=== PATIENT | female | born 1950 ===

== ENCOUNTER 2018-02-19 10:05 | Day surgery (SDC) | payer BC ==
[2018-02-15 12:34] VITALS: BMI 36.0
[2018-02-19] MEDS ORDERED: Midazolam 2 MG/2 ML VIAL ONE (13:08)
[2018-02-19] MEDS ORDERED: Propofol 10 mg/ml Inj (20 ML) ONE (13:08)
[2018-02-19] MEDS ORDERED: Lidocaine 2% MPF (5 ml) Inj ONE (13:22)
[2018-02-19] MEDS ORDERED: Bupivacaine 0.25% 20 ML INJ IJ ONE ×2 (13:22→14:00)
[2018-02-19] MEDS ORDERED: ceFAZolin IV 1 gm in Dextrose 2 GM/100 ML BAG IVPB ONE (13:22)
[2018-02-19] MEDS ORDERED: Oxycodone/Acetaminophen 5/325 mg Tab PO PRN (14:13)
[2018-02-19] MEDS ORDERED: HYDROmorphone 0.5 mg/0.5 ml ISec IVP PRN (14:20)
[2018-02-19] MEDS ORDERED: HYDROmorphone 0.5 mg/0.5 ml ISec ONE (14:24)
[2018-02-19 15:58] VITALS: RESP 18; TEMP 97.7; O2SAT 96
[2018-02-19 17:06] VITALS: BP 126/52; PULSE 65
--- NOTE | 2018-02-21 09:22 | OP ---
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 PROCEDURE PERFORMED: Wide deep excision (radical resection) of a 5 cm x 10 cm arteriovenous malformation/ vascular tumor of the left thigh. SURGEON: Jesu Cabello MD ANESTHESIA: General. ESTIMATED BLOOD LOSS: 50 mL. POSTOPERATIVE CONDITION: Stable. INDICATION FOR SURGERY: This is a 67-year-old female presented with a painful mass over the left thigh, measuring 5 x 10 cm consistent with a vascular tumor and AV malformation. She now presents which benefits definitive removal. GROSS FINDINGS: This is a 5 x 10 cm mass with several feeder veins and arteries consistent with a large hemangioma/vascular tumor/AV malformation. It was removed en bloc. DESCRIPTION OF PROCEDURE: The patient was taken to the operating room. General anesthesia was administered, and the left lower extremity was prepped and draped. A generalized elliptical incision was made surrounding the thigh mass, the mid portion of the thigh, slightly medium. It was carried down through the skin into subcutaneous tissue. A large feeding blood vessels were well controlled between clamps with Vicryl ties and also using medium hemoclips. There were several feeder veins and vessels ligated in order to completely remove the specimen as hemostatically as possible. A larger blood vessel deep was repaired with Prolene. Once it was completely excised, the cavity was irrigated with saline. Generous tissue flaps were raised using the Bovie full thickness. Counter incisions were made, and advancement flap closure was performed, totaling 50 sq cm using multiple layers of Monocryl, subcuticular Monocryl, glue, and skin gavin. The patient tolerated the procedure well and returned to recovery room in stable condition. Jesu Cabello MD MTDD
== END 2018-02-19 17:10 | disposition home or self-care (01) ==
LOC: C.SDS 10:05
PROVIDERS: ATTEND Surgery
DX: D48.7 Neoplasm of uncertain behavior of other specified sites (principal); D18.00 Hemangioma unspecified site
CPT/HCPCS: 11406; 12037; 36415; 82948; 86850; 86900; 97116; 97161; G8978; G8979; G8980; J0690; J1170; J2250; J2704; J3010; J7120